=== PATIENT | male | born 1965 | race Caucasian/White ===

== ENCOUNTER 2019-01-19 18:51 | Emergency (ER) | payer BC, SELFPAY ==
[2019-01-19 18:57] VITALS: BP 141/69; PULSE 65; RESP 20; TEMP 36.7; O2SAT 99
--- NOTE | 2019-01-19 19:07 | ED.GENADUL_ITS ---
Discharge Plan Disposition Patient Disposition: HOME Condition: Stable Discharge Details Chief Complaint: Orthopedic Clinical Impression: Fracture of distal end of right fibula, Ankle syndesmosis disruption Primary Care Provider: Jazmin,Local ED Provider: Blade Worley Home Meds and New Rx's Prescriptions: New hydrocodone-acetaminophen [[place]] 5-325 mg tablet 1 tab PO Q6H PRN (Reason: pain) Qty: 6 RF: 0 Continued omeprazole 20 mg Capsule,Delayed Release(Dr/Ec) 20 mg PO DAILY PRNRF: 0 albuterol sulfate 90 mcg/actuation Hfa Aerosol Inhaler 1 puff INHALATION Q6H PRNRF: 0 Discharge Instructions Instructions: Ankle Fracture (ED) Additional Instructions: Remain nonweightbearing and keep splint on at all times. If you notice any severe increase in pain or discomfort, loss of sensation to your foot, or severe discoloration of your foot you should seek emergent reevaluation. Otherwise it is very important that you contact an orthopedist tomorrow morning for arrangement of follow-up appointment for possible need of surgery. Referrals: Primary Care Provider [Outside] (Call your primary care office for any need of referral to local orthopedist as soon as you can/first thing tomorrow morning) Medical Decision Making Patient presenting to the emergency department for chief complaint of right ankle pain. Patient reports that he was walking and slipped on some leaves causing a eversion injury to his right ankle, during the injury he did hear a pop. He states initially he was able to put a little bit of pressure on it but now can have no weightbearing without severe pain. Patient denies any other injury or trauma, loss of consciousness, neck or back pain. Exam shows significantly swollen medial malleolus with tenderness to this area otherwise no proximal tibia discomfort, no discomfort to foot, and otherwise unremarkable exam. Plan to perform radiological imaging for concern of possible fracture. Results patient given acetaminophen + Motrin. Review of radiological imaging and radiologist interpretation shows IMPRESSION: 1. Mildly displaced spiral fracture of the distal fibular shaft. 2. Disruption of the ankle mortise with marked widening of the medial clear space and the tibiofibular space, indicating ligamentous injury (syndesmosis/interosseous membrane and deltoid ligament). Concern of ligamentous injury I did order tib-fib x-ray. Patient refused the study stating that he is from [place] and would prefer to follow-up at home. He states that they were more likely want to do their own imaging. Patient was informed that he should immediately follow-up with orthopedist to edge morning due to concern of unstable ankle fracture and high likelihood of surgical intervention needed. Patient and significant other stated clear understanding of this and stated they would call local orthopedist tomorrow morning or to call primary care office for emergent referral to orthopedist. Drug database was queried and no files were found to suggest any narcotic abuse and there is no concern upon interviewing patient for this. Patient given limited supply of [place]. Patient was splinted with Ortho-Glass to stabilize the injury and placed on crutches. Return precautions were discussed. After discussion of diagnosis and plan of care patient has no further needs, questions, or concerns and states clear understanding to return to the emergency department for any worsening symptoms. HPI General Mode of arrival: wheelchair . Date/Time Provider Initiated Documentation: 01/19/19 19:02 . Limitations to Documentation: no limitations . Information obtained by: patient and RN notes reviewed . History of Present Illness 53 year old M presents to the emergency department with the chief complaint of right ankle injury, described as moderate, with intensity rated at 7. Quality is described as aching, and is localized to the right and lower extremity. Patient started experiencing this hour(s) (1) and it has been constant. Patient notes no other symptoms.. Patient did receive the following treatments prior to arrival, none Related Data Home Medications Medication Instructions Recorded Confirmed albuterol sulfate 1 puff INHALATION Q6H PRN 01/19/19 01/19/19 hydrocodone-acetaminophen [[place]] 1 tab PO Q6H PRN #6 tab 01/19/19 omeprazole 20 mg PO DAILY PRN 01/19/19 01/19/19 Previous Rx's Medication Instructions Recorded hydrocodone-acetaminophen [[place]] 1 tab PO Q6H PRN #6 tab 01/19/19 Allergies Allergy/AdvReac Type Severity Reaction Status Date / Time No Known Allergies Allergy Unverified 01/19/19 19:00 General Stated Complaint: Orthopedic FELICITAS: 4 Review of Systems Cardiovascular Denies syncope Musculoskeletal Reports as per HPI, Denies numbness and Denies tingling Integumentary/Breasts Denies rash, Denies sores and Denies wounds Neurologic Denies syncope, Denies numbness and Denies tingling PFSH Medical History Asthma (Chronic) GERD (gastroesophageal reflux disease) (Chronic) Surgical History History of appendectomy (Chronic) Social History Smoking/Tobacco Use Status: Never Alcohol Intake: current Alcohol Intake frequency: a few times a week Drug use: Never Substance use type: does not use Exam Const General: not in acute distress and not diaphoretic Orientation: alert, awake and oriented x3 Resp Effort & Inspection: normal respiratory effort and able to speak in complete sentences Cardio Rate: regular rate Rhythm: regular rhythm Extrem Right lower extremity: knee Details: normal to inspection and normal ROM; no tenderness, lower leg Details: normal to inspection; no tenderness, ankle Details: tenderness Location: of the medial malleolus, swelling Details: medially and abnormal ROM Details: pain with active ROM (all range of motion reduced due to pain) and foot Details: normal capillary refill, normal to inspection, toes with normal ROM, vascular exam Details: dorsalis pedis pulse present and motor-sensory exam Details: light-touch normal; no tenderness Course Vital Signs Temperature 36.7 C 01/19/19 18:57 Pulse 65 01/19/19 18:57 Respiratory Rate 20 01/19/19 18:57 Blood Pressure 141/69 H 01/19/19 18:57 Pulse Oximetry 99 01/19/19 18:57 Temperature 36.7 C 01/19/19 18:57 Temperature Source Skin 01/19/19 18:57 Pulse 65 01/19/19 18:57 Respiratory Rate 20 01/19/19 18:57 Respiratory Effort Non-Labored 01/19/19 19:02 Blood Pressure 141/69 H 01/19/19 18:57 Blood Pressure Position Sitting 01/19/19 18:57 Pulse Oximetry 99 01/19/19 18:57 Oxygen Delivery Method Room Air 01/19/19 18:57 Oxygen Flow Rate 0 01/19/19 18:57 Pain Level 7 01/19/19 18:57 Procedures Orthopedic Splinting/Casting right ankle: Side: right Lower Extremity Injury Location: lower leg and ankle Lower Extremity Immobilizer: posterior splint (Ortho-Glass), stirrup splint (Ortho-Glass) and Nikita wrap Other Orthopedic Equipment: crutches
[2019-01-19] MEDS: Acetaminophen 325 MG TAB 650 MG PO (19:12)
[2019-01-19] MEDS: Ibuprofen 600 MG TAB PO (19:13)
--- NOTE | 2019-01-19 19:31 | DI.RAD_ITS ---
SYMPTOM/DIAGNOSIS: INJURY, MEDIAL MALLEOLAR TENDERNESS, FELL RIGHT ANKLE: Four views were obtained. There is a spiral fracture of the distal fibular diaphysis. There is marked widening of the tibiofibular joint and marked widening of the ankle mortise medially. No additional fracture is seen. CONCLUSION: Fracture dislocation as described above.
--- NOTE | 2019-01-19 19:59 | DI.VRAD_ITS ---
EXAM: XR Right Ankle Complete, 3 or more Views EXAM DATE/TIME: 01/19/2019 7:07 PM CLINICAL HISTORY: 53 years old, male; Injury or trauma; Fall; Initial encounter; Swelling (edema); Injury date: 01/19/19; Injury details: Slipped on leaves, felt a pop in right ankle, swelling TECHNIQUE: Imaging protocol: XR Right ankle. Views: 3 or more views. COMPARISON: No relevant prior studies available. FINDINGS: Bones/joints: Mildly displaced spiral fracture of the distal fibular shaft. Disruption of the ankle mortise with marked widening of the medial clear space and the tibiofibular space, indicating ligamentous injury (syndesmosis/interosseous membrane and deltoid ligament). Soft tissues: Soft tissue swelling about the ankle. IMPRESSION: 1. Mildly displaced spiral fracture of the distal fibular shaft. 2. Disruption of the ankle mortise with marked widening of the medial clear space and the tibiofibular space, indicating ligamentous injury (syndesmosis/interosseous membrane and deltoid ligament). Dictated and Authenticated by: Roosevelt Manning MD. Ordering:NANDINI Murguia MD
[2019-01-19] MEDS: HYDROcodone 5/Acetaminophen 325 TAB PO ×2 (21:05→21:24)
[2019-01-19 21:27] VITALS: BP 151/87; PULSE 69; RESP 20; TEMP 37.1; O2SAT 97
== END 2019-01-19 21:40 | disposition home or self-care (01) ==
PROVIDERS: Emergency Provider Nurse Practitioner Family
DX: S82.441A Displaced spiral fracture of shaft of right fibula, initial encounter for closed fracture (principal); S93.431A Sprain of tibiofibular ligament of right ankle, initial encounter; W01.0XXA Fall on same level from slipping, tripping and stumbling without subsequent striking against object, initial encounter
CPT/HCPCS: 29515; 99283; 73610; E0114